=== PATIENT | female | born 1950 | race Asian ===

== ENCOUNTER 2016-07-18 08:45 | Outpatient (RCR) | payer OTHER | END 2016-07-29 | disposition home or self-care (01) | LOC: PTY 08:45 | DX: M54.2 Cervicalgia (principal); G89.29 Other chronic pain; M54.9 Dorsalgia, unspecified; M25.559 Pain in unspecified hip; M25.519 Pain in unspecified shoulder ==

== ENCOUNTER 2016-08-24 09:00 | Outpatient (RCR) | payer OTHER | END 2016-08-28 | disposition home or self-care (01) | LOC: PTY 09:00 | DX: M54.2 Cervicalgia (principal); G89.29 Other chronic pain; M25.512 Pain in left shoulder; M25.511 Pain in right shoulder; M25.562 Pain in left knee; M25.561 Pain in right knee; M54.5 Low back pain; J45.909 Unspecified asthma, uncomplicated | CPT/HCPCS: 97110; 97140; G0283 ==

== ENCOUNTER 2016-09-12 10:00 | Outpatient (RCR) | payer OTHER | END 2016-09-28 | disposition home or self-care (01) | LOC: PTY 10:00 | DX: M54.2 Cervicalgia (principal) | CPT/HCPCS: 97110; 97140; G0283 ==